=== PATIENT | female | born 1940 | race Caucasian/White ===

== ENCOUNTER 2016-07-19 06:11 | Inpatient (IN) | payer OTHER, BC ==
[2016-06-26 12:17] VITALS: BMI 42.0
--- NOTE | 2016-06-26 12:46 | PAT Medication Instructions ---
Service Date Jun 26, 2016. Current Home Medication List Acetaminophen (Tylenol), 1,000 MG PO PRN Albuterol (Proair Hfa), 2 PUFFS INH Q4 PRN for SOB/Wheezing Calcium/Vitamin D (Os-King 500 Plus D), 2 TAB PO NOON Cetirizine (Zyrtec), 10 MG PO QAM Citalopram (Citalopram Hydrobromide), 20 MG PO QAM Cyanocobalamin (Vitamin B12), 1,000 MG PO QAM Fluticasone Prop/Salmeterol (Advair Diskus 250/50 60 Dose), 1 PUFF INH BID Levothyroxine Sodium (Levothyroxine Sodium), 1 TAB PO QAM Mometasone Furoate (Nasal) (Mometasone Furoate), 2 SPRAYS ANDRES PRN Multivitamin (Multivitamin), 1 TAB PO QAM Omeprazole (Prilosec), 40 MG PO QAM Pravastatin (Pravachol ), 40 MG PO HS Ranitidine Hcl (Zantac), 300 MG PO HS Rivaroxaban (Xarelto), 20 MG PO HS Medication Instructions For Your Scheduled Surgery - Hold the following medications 3 days prior to surgery per Pulmonology instructions: Rivaroxaban (Xarelto), 20 MG PO HS - Hold the following medications the morning of surgery: Calcium/Vitamin D (Os-King 500 Plus D), 2 TAB PO NOON Cetirizine (Zyrtec), 10 MG PO QAM Cyanocobalamin (Vitamin B12), 1,000 MG PO QAM Multivitamin (Multivitamin), 1 TAB PO QAM - Take the following medications the morning of surgery with a sip of water OTHERWISE NOTHING TO EAT OR DRINK AFTER MIDNIGHT: Acetaminophen (Tylenol), 1,000 MG PO PRN (may take if needed up to 4 hours prior to surgery) Albuterol (Proair Hfa), 2 PUFFS INH Q4 PRN for SOB/Wheezing (use if needed; BRING TO HOSPITAL) Mometasone Furoate (Nasal) (Mometasone Furoate), 2 SPRAYS ANDRES PRN Citalopram (Citalopram Hydrobromide), 20 MG PO QAM Fluticasone Prop/Salmeterol (Advair Diskus 250/50 60 Dose), 1 PUFF INH BID Levothyroxine Sodium (Levothyroxine Sodium), 1 TAB PO QAM Omeprazole (Prilosec), 40 MG PO QAM - Take the following medications as scheduled the night before surgery: Acetaminophen (Tylenol), 1,000 MG PO PRN Albuterol (Proair Hfa), 2 PUFFS INH Q4 PRN for SOB/Wheezing Fluticasone Prop/Salmeterol (Advair Diskus 250/50 60 Dose), 1 PUFF INH BID Pravastatin (Pravachol ), 40 MG PO HS Ranitidine Hcl (Zantac), 300 MG PO HS If you have any questions please call us at [phone] or [phone] or [phone]
[2016-06-26 13:28] LABS: BASO % 0.3 %; BASO ABS # 0.02 K/uL (0-0.2); COMPLETE YES; EOS % 0.9 %; HEMATOCRIT 40.5 % (37-47); IG% 0.1 %; LYMPH % 22.3 %; LYMPH ABS # 1.77 K/uL (1.2-3.4); MEAN CELL VOLUME 89.6 fL (80-100); MEAN CORPUSCULAR HEMOGLOBIN 29.4 pg (25-34); MEAN CORPUSCULAR HGB CONC 32.8 g/dl (32-36); NEUT % 68.4 %; PLATELET COUNT 280 K/uL (130-400); RED BLOOD COUNT 4.52 M/uL (4.2-5.4); WHITE BLOOD COUNT 7.92 K/uL (4.8-10.8)
[2016-06-26 13:39] LABS: INR 1.1 (0.9-1.1); PROTHROMBIN TIME (PATIENT) 11.7 SECONDS (9.0-12.0)
[2016-06-26 13:41] LABS: URINE APPEARANCE CLEAR (CLEAR); URINE BILIRUBIN NEG (NEG); URINE COLOR YELLOW; URINE EPITHELIAL CELL AUTO >30 /lpf (0-5); URINE NITRITE NEG (NEG); URINE SPECIFIC GRAVITY 1.034 (1.000-1.030); UROBILINOGEN NEG (NEG)
[2016-06-26 13:42] LABS: MANUAL MICROSCOPIC REQUIRED? NO; REVIEW REQ? NO
[2016-06-26 14:15] LABS: BUN/CREATININE RATIO 23.9 (10-20); CALCIUM 8.9 mg/dl (8.5-10.1); CREATININE 0.71 mg/dl (0.60-1.20); POTASSIUM 4.1 mmol/L (3.5-5.1)
--- NOTE | 2016-07-18 15:14 | HISTORY & PHYSICAL EXAMINATION ---
DATE OF ADMISSION: 07/19/2016 CHIEF COMPLAINT: Primary osteoarthritis of the right knee. HISTORY OF PRESENT ILLNESS: Felicita is a very pleasant 76-year-old female who has been dealing with chronic right knee pain. X-rays and clinical examination have been diagnostic for primary osteoarthritis of the right knee. After failing years of conservative treatment including multiple injections, she has elected to proceed with a right total knee arthroplasty. PAST MEDICAL HISTORY: Significant for hypertension, asthma, pulmonary embolism, anxiety, shortness of breath, GERD, and obesity. PAST SURGICAL HISTORY: Significant for cataracts. ALLERGIES: INCLUDE SIMVASTATIN AND SULFA ANTIBIOTICS. MEDICATIONS: Include Tylenol 1000 mg as needed, ProAir 2 puffs every 4 hours as needed, Os-King 500 mg 2 tabs at noon, Zyrtec 10 mg daily, Celexa 20 mg daily, vitamin B12 1000 mg daily, Advair Diskus 1 puff twice a day, Synthroid 100 mcg daily, Flonase 2 sprays as needed, daily multivitamin, Prilosec 40 mg daily, Pravachol 40 mg at night, Zantac 300 mg at night and Xarelto 20 mg at night. SOCIAL HISTORY: She denies any tobacco, alcohol or IV drug use. She ambulates independently. REVIEW OF SYSTEMS: She complains of right knee pain. All other pertinent review of systems are negative. PHYSICAL EXAMINATION: GENERAL: She is awake, alert and oriented x3. She is in no apparent distress. She is very pleasant. HEAD, EYES, EARS, NOSE, AND THROAT: Pupils equal, round and reactive to light. Extraocular motion intact. Oral mucosa is pink and moist. HEART: Regular rate per radial pulse. LUNGS: Anum symmetrically bilaterally with no audible breath sounds. ABDOMEN: Soft, nontender, nondistended. MUSCULOSKELETAL: On physical examination of the right knee there is no swelling or effusion. She does have a valgus deformity of her right knee. She has no ligamentous instability. She has painless range of motion of her hip. She has good range of motion of her knee from 0 to 125 degrees. She has significant tenderness to palpation over the lateral joint line and over the distal lateral femoral condyle. IMAGING DATA: X-rays of the left knee do show advanced osteoarthritis mostly in the lateral compartment. There is joint space narrowing and osteophyte formation. IMPRESSION: Primary osteoarthritis of the right knee. PLAN: Will proceed with a Biomet Vanguard right total knee arthroplasty. Postoperatively, she will be placed in a soft dressing and discharged to general orthopedic floors. She will be put on Xarelto 10 mg daily for postoperative DVT prophylaxis. She will likely be in the hospital for 2 midnights for medical evaluation.
[2016-07-19] VITALS (9 sets, daily range): BP systolic 95–143; BP diastolic 64–87; PULSE 63–78; TEMP 36.3–36.9; O2SAT 95–100; Ht 149.9 cm; Wt 42.4 kg
[~2016-07-19] VITALS: Ht 149.9 cm; Wt 42.4 kg
[~2016-07-19 06:11] MED LIST: ACET-1256 PO; ACETAMINOPHEN 500 MG TAB PO SCH; ADVIN25/60 INH; ALBU1AER9 INH; CALC500C70 PO; CEFAZOLIN 2000 MG/60 ML D5W 60 ML IV SCH; CETI10TA84 PO; CITA40TA4 PO; CYAN100020 PO; FAMOTIDINE 20 MG TAB PO SCH; GABAPENTIN 300 MG CAP PO SCH; LACTATED RINGER'S 1000ML 500 ML IV SCH; LACTATED RINGER'S 1000ML IV SCH; LEVO100T7 PO; MOME6000 NAE; MULT-506 PO; OMEP40CA PO; PRAV20TA PO; RANI300T2 PO; RIVA1TAB4 PO; ROPIVACAINE 5MG/ML 30 ML 150 MG, BUPIVACAINE/EPINEPHR 0.5% MPF 30 ML, KETOROLAC TROMETH... INFIL SCH; TRANEXAMIC ACID INJ 1,000 MG in SODIUM CHLORIDE 0.9% 100ML 100 ML IV SCH
[2016-07-19] MEDS: TRANEXAMIC ACID INJ 1,000 MG in SODIUM CHLORIDE 0.9% 100ML 100 ML IV SCH ×2 (06:30→09:19)
[2016-07-19] MEDS ORDERED: BUPIVACAINE 0.5 % 5 MG/1 ML PF 10ML VIAL ONE (06:30)
--- NOTE | 2016-07-19 06:43 | History & Physical Bridge Note ---
H&P Re-Evaluation Bridge Note: I have examined the patient, reviewed the History & Physical and in the interval since the performance of the History & Physical I have noted the following changes of clinical significance: No changes noted
[2016-07-19] MEDS ORDERED: lovenox (06:48)
[2016-07-19] MEDS ORDERED: MIDAZOLAM HCL 1 MG/ML 2ML VIAL ONE (08:32)
[2016-07-19] MEDS ORDERED: FENTANYL CITRATE INJ 50 MCG/1 ML 2 ML VIAL ONE (08:32)
[2016-07-19] MEDS ORDERED: EpHEDrine SULFATE INJ 50 MG/ML AMP IV PRN (08:45)
[2016-07-19] MEDS ORDERED: ONDANSETRON INJ 2 MG/ML 2 ML VIAL IV PRN ×2 (08:45→11:15)
[2016-07-19] MEDS ORDERED: ATROPINE SULFATE 0.1 MG/ML 5ML SYR IV PRN (08:45)
[2016-07-19] MEDS ORDERED: FENTANYL CITRATE INJ 50 MCG/1 ML 2 ML VIAL IV PRN (08:45)
[2016-07-19] MEDS ORDERED: BACITRACIN 50000 UNIT VIAL ONE (09:20)
[2016-07-19] MEDS ORDERED: ORTHO JOINT ANESTHETIC ONE (09:20)
[2016-07-19] MEDS ORDERED: PHENYLEPHRINE 100MCG/ML 5ML SYR ONE (10:14)
[2016-07-19] MEDS ORDERED: PROPOFOL IV EMULSION 10 MG/ML 20 ML VIAL IV ONE (10:24)
[2016-07-19] MEDS ORDERED: EpHEDrine SULFATE 50MG/5ML SYR ONE (10:28)
--- NOTE | 2016-07-19 11:08 | [facility] Post Operative Brief Note ---
Immediate Operative Summary Operative Date July 19, 2016. Pre-Operative Diagnosis Right Knee Degenerative Joint Disease Post-Operative Diagnosis Right Knee Degenerative Joint Disease Procedure(s) Performed Right Total Knee Arthroplasty Surgeon Dr. Patel Sprinkling System Installer Surgeon(s) Norberto Arora Estimated Blood Loss 5 ml Findings as above Specimens Permanent Specimens A: Right Knee Bone and Tissue Complication(s) None Disposition Recovery Room / PACU
[2016-07-19] MEDS ORDERED: SOD PHOSPHATE/SOD BIPHOSPHATE ENEMA 132 ML BTL PR PRN (11:15)
[2016-07-19] MEDS ORDERED: MoRPHine SULFATE 2 MG/ML CARP IV PRN (11:15)
[2016-07-19] MEDS ORDERED: BISACODYL 10 MG SUPP PR PRN (11:15)
[2016-07-19] MEDS ORDERED: METOCLOPRAMIDE HCL INJ 5 MG/ML 2 ML VIAL IV PRN (11:15)
[2016-07-19] MEDS ORDERED: ALBUTEROL HFA 8 GM INHALER INH PRN (11:15)
[2016-07-19] MEDS ORDERED: MAGNESIUM HYDROXIDE SUSP 30 ML UDC PO PRN (11:15)
[2016-07-19] MEDS ORDERED: SILVER SULFADIAZINE 1% CR 50 GM JAR EXT PRN (11:15)
--- NOTE | 2016-07-19 12:16 | DIAGNOSTIC IMAGING REPORT ---
RIGHT KNEE 1 OR 2 VIEWS ROUTINE CLINICAL HISTORY: AP/LATERAL IN PACU RIGHT KNEE Right joint replacement COMPARISON: None. DISCUSSION: Evidence for a total right knee replacement. Good contact between prosthetic and underlying bone. Surgical drains are in position. Expected soft tissue postoperative change. IMPRESSION: Anatomic alignment status post total right knee replacement. Electronically signed by: Efren Mtaute M.D. 07/19/2016 12:15 PM Dictated Date/Time: 07/19/2016 12:15 PM
--- NOTE | 2016-07-19 12:51 | Anesthesiology Progress Note ---
Anesthesia Post Op Note Date & Time July 19, 2016 at 12:51 Vital Signs Pain Intensity: 0 Vital Signs Past 12 Hours Date Time Temp Pulse Resp B/P Pulse Ox O2 Delivery O2 Flow Rate FiO2 07/19/16 12:15 101/54 07/19/16 12:12 65 14 07/19/16 12:12 65 14 96 07/19/16 12:10 110/50 07/19/16 12:07 67 13 07/19/16 12:07 67 13 96 07/19/16 12:05 107/57 07/19/16 12:04 36.9 07/19/16 12:02 67 15 95 07/19/16 12:02 66 15 07/19/16 12:01 65 19 96 07/19/16 12:01 66 19 07/19/16 12:00 116/51 07/19/16 11:56 75 19 98 07/19/16 11:56 75 19 07/19/16 11:55 99/51 07/19/16 11:51 66 16 07/19/16 11:51 65 16 97 07/19/16 11:50 70 19 120/53 97 07/19/16 11:50 68 19 07/19/16 11:46 114/56 07/19/16 11:45 75 17 07/19/16 11:45 76 17 99 07/19/16 11:40 37.1 74 16 140/64 97 Mask 10 07/19/16 11:40 74 18 07/19/16 11:40 72 18 140/64 96 07/19/16 06:53 36.9 78 20 143/87 96 Room Air Notes Mental Status: alert / awake / arousable, participated in evaluation Pt Amnestic to Procedure: Yes Nausea / Vomiting: adequately controlled Pain: adequately controlled Airway Patency, RR, SpO2: stable & adequate BP & HR: stable & adequate Hydration State: stable & adequate Neuraxial Anesthesia: was administered, sensory block is resolving Anesthetic Complications: no major complications apparent
[2016-07-19] MEDS ORDERED: FLUTICASONE PROPIONATE NA SPR 16 GM BTL PRN (13:00)
[2016-07-19] MEDS: D5W AND 1/2NSS + 20MEQ KCL 1,000 ML IV SCH ×2 (13:36→22:54)
[2016-07-19] MEDS: CALCIUM 600MG + VIT D 400 IU TAB PO SCH (13:37)
[2016-07-19] MEDS: ACETAMINOPHEN 500 MG TAB PO SCH ×2 (13:37→21:49)
[2016-07-19] MEDS: KETOROLAC TROMETHAMINE 15 MG/ML VIAL IV. SCH ×3 (13:38→23:19)
--- NOTE | 2016-07-19 14:47 | OPERATIVE REPORT ---
DATE OF OPERATION: 07/19/2016 PREOPERATIVE DIAGNOSIS: Primary osteoarthritis of the right knee. POSTOPERATIVE DIAGNOSIS: Same. PROCEDURE: Right total knee arthroplasty. SURGEON: Dr. Lopez Patel. MOLDED GOODS EMBOSSING PRESS OPERATOR: Trav Orellana PA-C, whose assistance was necessary for positioning of the leg and helping with retraction. ANESTHESIA: Spinal. COMPLICATIONS: None. CONDITION: Stable to PACU. IMPLANTS USED: I used a Biomet Vanguard right total knee arthroplasty with a size 60 femur, size 63 tibia, size 28 patella and a 10 posterior stabilized poly. All complements were cemented with Palacos-G cement. INDICATIONS: Felicita is a pleasant 76-year-old female who presented to my office with complaints of chronic right knee pain. X-rays and clinical examination were diagnostic for primary osteoarthritis of the right knee. After failing conservative treatment, she elected to undergo a right total knee arthroplasty. DESCRIPTION OF PROCEDURE: On 07/19/2016, she arrived at [facility] for the above procedure. She was seen in the preoperative holding area and the operative extremity was identified and signed. She was given a preoperative antibiotic and a spinal anesthetic and a right adductor nerve block. She was taken back to the operating room, laid on the table in supine position and given basic sedation. The right knee was then prepped and draped in sterile fashion. Time-out was done and the patient and operative extremity was properly identified. A midline incision was made directly over the patella. Dissection was taken down to the extensor mechanism and a medial parapatellar approach was used. The fat pad was excised, medial retinaculum was released and the knee was flexed. A drill was sent down the center of the femoral canal. An intramedullary deniz was then placed and off that deniz, there was a distal femoral resection guide set at 6 degrees of valgus. 12 mm was resected off the distal femur. A posterior referencing guide was then used and the femur measured to be a size 60. Two drill holes were placed in 3 degrees of external rotation. A 4-in-1 cutting block was then impacted into place. Anterior, posterior and chamfer cuts were then made. A box cutting guide was then placed and the box was resected for the posterior stabilizing component. The proximal tibia was exposed. A drill was sent down the center of the tibial canal followed by an intramedullary deniz. Off that deniz, a proximal tibial resection guide was placed and 2 mm was resected off the low lateral side. The tibia was then removed. The tibia was then measured to be a size 63 and was placed in appropriate rotation, drilled and then punched. The posterior aspect of the knee was opened up and any meniscal remnants were removed. The ACL and PCL were completely removed. Trial complements were placed. The knee was brought through a full range of motion and felt to be stable. The patella was everted and 8 mm was resected off the posterior aspect of the patella. The patella button measured to be a size 28 and 3 drill holes were placed. A trial was used and there was a good fit. All trial components were then removed. The knee was irrigated with 3 liters of normal saline solution with bacitracin. All surrounding soft tissues were injected with 100 mL orthopedic pain control cocktail. The femoral, tibial, and patellar components were cemented with Palacos-G cement. Once cement had hardened, several polyethylene trials were used and a size 10 seemed to be the best fit. The final implant was snapped into place and anterior bar was locked. The knee was once again irrigated and 2 drains were placed. The extensor mechanism was closed with #2 FiberWire sutures at the superior medial aspect of the patella and #1 Vicryl suture at the proximal and distal ends. The knee was flexed and the repair was strong. The skin was then closed with 2-0 Vicryl and 3-0 V-Loc suture and zainab. She was placed in a soft compressive dressing and taken to the postanesthesia care unit in stable condition. She tolerated the procedure well. I attest to the content of the Intraoperative Record and any orders documented therein. Any exceptio ns are noted below.
[2016-07-19] MEDS ORDERED: PNEUMOCOCCAL POLYSACCHARIDES 25 MCG/0.5 ML VIAL/SYR IM. ONE (16:00)
[2016-07-19] MEDS ORDERED: PNEUMOCOCCAL ADMINISTRATION CHARGE ONE (16:00)
[2016-07-19] MEDS: CEFAZOLIN IV 2,000 MG in DEXTROSE 5% 50ML 50 ML IV SCH (17:38)
[2016-07-19] MEDS: FLUTICASONE/SALMETEROL 250/50 (ADVAIR) 14 PUFF/1 INHALER INH SCH (21:45)
[2016-07-19] MEDS: PRAVASTATIN SOD 40 MG TAB PO SCH (21:48)
[2016-07-19] MEDS: DOCUSATE SODIUM 100 MG CAP PO SCH (21:48)
[2016-07-19] MEDS: RANITIDINE HCL 150 MG TAB PO SCH (21:48)
[2016-07-19] MEDS: SENNA 8.6 MG TAB PO SCH (21:48)
[2016-07-20] VITALS (9 sets, daily range): BP systolic 118–149; BP diastolic 74–97; PULSE 66–74; TEMP 35.6–36.8; O2SAT 92–100
[2016-07-20] MEDS: CEFAZOLIN IV 2,000 MG in DEXTROSE 5% 50ML 50 ML IV SCH (01:59)
[2016-07-20] MEDS: KETOROLAC TROMETHAMINE 15 MG/ML VIAL IV. SCH ×4 (05:22→23:31)
[2016-07-20] MEDS: RIVAROXABAN 10 MG TAB PO SCH (05:23)
[2016-07-20] MEDS: ACETAMINOPHEN 500 MG TAB PO SCH ×3 (05:23→21:47)
[2016-07-20] MEDS: LEVOTHYROXINE 100 MCG TAB PO SCH (05:23)
[2016-07-20 06:28] LABS: HEMATOCRIT 38.7 % (37-47); MEAN CELL VOLUME 91.3 fL (80-100); MEAN CORPUSCULAR HEMOGLOBIN 28.5 pg (25-34); MEAN CORPUSCULAR HGB CONC 31.3 g/dl (32-36); MEAN PLATELET VOLUME 10.2 fL (7.4-10.4); PLATELET COUNT 216 K/uL (130-400); RED BLOOD COUNT 4.24 M/uL (4.2-5.4); WHITE BLOOD COUNT 10.09 K/uL (4.8-10.8)
[2016-07-20 07:02] LABS: CALCIUM 8.9 mg/dl (8.5-10.1); CREATININE 0.67 mg/dl (0.60-1.20); POTASSIUM 4.1 mmol/L (3.5-5.1)
--- NOTE | 2016-07-20 08:59 | PROGRESS NOTE ---
DATE: 07/20/2016 CHIEF COMPLAINT: Status post right total knee arthroplasty postop day #1. PROGRESS: Felicita was seen and examined at bedside today. Overall, she is doing fairly well. She really does not have much pain in the knee. She was up and ambulating to the bathroom early this morning. She is having a little bleeding from underneath the dressing. Otherwise, no complaints. PHYSICAL EXAMINATION: RIGHT KNEE: The dressing has been overwrapped but otherwise looks good. The drain is still to suction. She has active dorsiflexion and plantarflexion of her right ankle. Sensation is intact. LABS: Today show an H\T\H of 12.1 and 38.7. Her glucose is 147. Her vital signs are stable on room air and she is voiding on her own. X-rays postoperatively of the knee showed the prosthesis to be near anatomical alignment without any evidence of fractures, dislocation or loosening. IMPRESSION: Status post right total knee arthroplasty postop day #1. PLAN: At this point, she is doing as well as expected. The nursing staff will change the dressing and pull the drain tomorrow. Will continue to do physical therapy today. She plans to go home tomorrow as long as her pain is controlled. CHRISTOS
[2016-07-20] MEDS: FLUTICASONE/SALMETEROL 250/50 (ADVAIR) 14 PUFF/1 INHALER INH SCH ×2 (09:12→21:46)
[2016-07-20] MEDS: CETIRIZINE HCL 10 MG TAB PO SCH (09:13)
[2016-07-20] MEDS: CITALOPRAM 20 MG TAB PO SCH (09:13)
[2016-07-20] MEDS: MULTIVITAMIN TAB PO SCH (09:13)
[2016-07-20] MEDS: PANTOprazole SOD 40 MG TAB PO SCH (09:14)
[2016-07-20] MEDS: DOCUSATE SODIUM 100 MG CAP PO SCH ×2 (09:14→21:46)
[2016-07-20] MEDS: CYANOCOBALAMIN 500 MCG TAB (VIT B-12) PO SCH (09:15)
[2016-07-20] MEDS: D5W AND 1/2NSS + 20MEQ KCL 1,000 ML IV SCH (09:15)
[2016-07-20] MEDS: CALCIUM 600MG + VIT D 400 IU TAB PO SCH (12:09)
[2016-07-20] MEDS: OXYCODONE HCL IR 5 MG TAB (IMMEDIATE RELEASE) PO PRN (19:18)
[2016-07-20] MEDS: SENNA 8.6 MG TAB PO SCH (21:46)
[2016-07-20] MEDS: PRAVASTATIN SOD 40 MG TAB PO SCH (21:47)
[2016-07-20] MEDS: RANITIDINE HCL 150 MG TAB PO SCH (21:47)
[2016-07-21] MEDS: ACETAMINOPHEN 500 MG TAB PO SCH (05:28)
[2016-07-21] MEDS: RIVAROXABAN 10 MG TAB PO SCH (05:29)
[2016-07-21] MEDS: LEVOTHYROXINE 100 MCG TAB PO SCH (05:29)
[2016-07-21] MEDS: KETOROLAC TROMETHAMINE 15 MG/ML VIAL IV. SCH (05:29)
[2016-07-21 06:35] VITALS: BP 119/78; PULSE 73; TEMP 36.4; O2SAT 94
[2016-07-21] MEDS: FLUTICASONE/SALMETEROL 250/50 (ADVAIR) 14 PUFF/1 INHALER INH SCH (07:26)
[2016-07-21] MEDS: DOCUSATE SODIUM 100 MG CAP PO SCH (07:27)
[2016-07-21] MEDS: CITALOPRAM 20 MG TAB PO SCH (07:27)
[2016-07-21] MEDS: CETIRIZINE HCL 10 MG TAB PO SCH (07:28)
[2016-07-21] MEDS: CYANOCOBALAMIN 500 MCG TAB (VIT B-12) PO SCH (07:28)
[2016-07-21] MEDS: MULTIVITAMIN TAB PO SCH (07:28)
[2016-07-21] MEDS: PANTOprazole SOD 40 MG TAB PO SCH (07:28)
[2016-07-21] MEDS: OXYCODONE HCL IR 5 MG TAB (IMMEDIATE RELEASE) PO PRN (07:33)
[2016-07-21] MEDS ORDERED: RXC5 PO (09:24)
[2016-07-21 09:25] VITALS: BP 121/79; PULSE 72; O2SAT 97
--- NOTE | 2016-07-21 09:28 | Discharge Instructions ---
Discharge Instructions Date of Service July 21, 2016. Admission Reason for Admission: Right Knee Osteoarthritis Discharge Discharge Diagnosis / Problem: Right Total Knee Discharge Goals Goal(s): Decrease discomfort, Improve function Activity Recommendations Activity Limitations: as noted below . Instructions / Follow-Up Instructions / Follow-Up Activity and Therapy Recommendations: * If you are using [facility] then Physical Therapy will be provided until they feel you are ready to start Outpatient Physical Therapy. If you are not using a Home Health agency then Outpatient Physical Therapy should start about 3-5 days from your day of surgery. Therapy will last about 6-10 weeks * It is important not to put a pillow under your knee when you are relaxing or sleeping. It is just as important to make sure you are getting your knee perfectly straight as it is to regain your knee bend. * You were shown a series of exercises in the hospital. Do these exercises three times each day including the exercises you were shown in physical therapy. * Get up and walk several times each day. For the first four weeks, try not to stand or walk for more than one hour at a time. If you do stand or walk for more than one hour, you will not hurt anything, but your leg will likely swell. * As you feel comfortable, you may change from the walker or crutches to a cane and then to independent walking. Medications: * Narcotic You will likely be sent home from the hospital with a prescription for the narcotic pain medication that worked best throughout your stay. * Take Xerelto 10mg daily for 2 weeks then resume your 20mg daily dosage * Other medications may be prescribed for specific circumstances. If you have any questions, please call the office at . * Resume previous home medications unless otherwise instructed TEDs/Elastic Stockings: The white elastic stockings help limit swelling and prevent blood clots from forming in your legs.~ The more you wear them, the more they work. Wear them for six weeks. Dressing Care: You may leave the zainab uncovered or cover them if they are draining a little bit. No further dressing care is required Showering: You may shower 5 days from the day of surgery. Leave the zainab intact and let the soapy shower water run over it. Do not scrub or soak the dressing or the incision. Things To Watch For: * Drainage from the incision site that occurs more than one week after your surgery. * Increased redness at the incision site. * Fever above 102 degrees Fahrenheit. * Unusual chest pain or shortness of breath. * Call [facility] at with any of the above problems Follow-Up Visit: Follow-up with Dr. Patel 2-3 weeks after your day of surgery. An appointment was probably scheduled when you signed-up for surgery in the office. If you have any questions call Office Instructions: More detailed instructions as well as Frequently Asked Questions were provided in a folder by our office when you signed-up for surgery. Please review these instructions when you get home. If you have any further questions or concerns, please feel free to call the office at [phone] Current Hospital Diet Patient's current hospital diet: Regular Diet Discharge Diet Recommended Diet: Regular Diet Procedures Procedures Performed: Right Total Knee Arthroplasty Pending Studies Studies pending at discharge: no Medical Emergencies . Who to Call and When: Medical Emergencies: If at any time you feel your situation is an emergency, please call [phone] immediately. . Non-Emergent Contact Non-Emergency issues call your: Surgeon Call Non-Emergent contact if: wound has increased drainage, wound has increased redness . "Provider Documentation" section prepared by Lopez Patel. . VTE Core Measure Inpt VTE Proph given/why not?: Other Anticoagulation (Xerelto 10mg dauily for 2 weeks then resume your 20mg daily dose)
[2016-07-21 10:13] VITALS: BP 119/78; PULSE 73; TEMP 36.4; O2SAT 94
--- NOTE | 2016-07-21 10:19 | PROGRESS NOTE ---
DATE: 07/21/2016 DATE: 07/21/2016. CHIEF COMPLAINT: Status post right total knee arthroplasty postop day #2. PROGRESS: Felicita was seen and examined at bedside today. Overall, she is doing fairly well. She was having a lot of drainage yesterday from one of the drain hole sites, not from the incision itself. The dressing has been changed. It is is still draining a little bit but seems to be slowing down. Her pain is controlled. She has no other complaints. PHYSICAL EXAMINATION: The incision looks good. There is no drainage from the incision. There is some drainage from the medial drainage site. It does seem to be slowing down. Her leg lengths are equal. She is neurovascularly intact. IMPRESSION: Status post right total knee arthroplasty postop day #2. PLAN: She is doing fairly well. She has been working well with physical therapy. She has been ambulating. She had one area where she was a little lightheaded but her blood pressure is fine. She seems to be doing okay. Her pain is controlled. She is ready to be discharged to home. She can be discharged to home later this morning on oral pain medications and Xarelto.
--- NOTE | 2016-07-21 10:29 | DISCHARGE SUMMARY ---
DATE OF DISCHARGE: 07/21/2016. DISCHARGE DIAGNOSIS: Primary osteoarthritis of the right knee. PROCEDURE: Right total knee arthroplasty on 07/19/[address] Lopez Patel. DISCHARGE INSTRUCTIONS: 1. Oxycodone 5-10 mg every 4 hours as needed for pain. 2. Tylenol 1000 mg as needed. 3. Albuterol 2 puffs every 4 hours as needed. 4. Os-King 500 Plus D 2 tabs at noon. 5. Zyrtec 10 mg daily. 6. Celexa 20 mg daily. 7. Vitamin B12 1000 mg daily. 8. Advair Diskus 1 puff twice a day. 9. Synthroid 100 mcg daily. 10. Nasal sprays daily. 11. Prilosec 40 mg daily. 12. Pravachol 40 mg at night. 13. Zantac 300 mg at night. 14. Xarelto 10 mg daily for 2 weeks, then may resume the 20 mg daily dose. 15. Start physical therapy this week. 16. Follow up with Dr. Patel in 2 to 3 weeks. HOSPITAL COURSE: Felicita is a pleasant 76-year-old female who presented to my office with chronic right knee pain. X-rays and clinical examination were diagnostic for primary osteoarthritis of the right knee. After failing conservative treatment, she elected to undergo a right total knee arthroplasty. On 07/19/2016 she arrived at [facility] and underwent a right knee replacement without complications. She had a spinal anesthetic and a right adductor nerve block. Postoperatively, she was discharged to general orthopedic floor. She was started on Xarelto 10 mg daily. Her hospital course was uneventful. On postop day #1, her H\T\H was stable at 12.1 and 38.5. She was able to ambulate well with physical therapy. She was having some drainage from one of the drain hole sites, not from the incision itself. The dressing was changed later in the day and the drain was pulled. On postop day #2 she continued to do well. She was ambulating well with physical therapy and her pain was well controlled. She was subsequently discharged to home with the above instructions and oral pain medications.
== END 2016-07-21 11:10 | disposition home health service (06) | DRG 470 ==
LOC: ENRESERVTM → ENRESERVDT → C.ACU 06:11 → C.3E 06:56
PROVIDERS: ADMIT Orthopaedic Surgery; ATTEND Orthopaedic Surgery
PROC: 0SRC0J9 Replacement of Right Knee Joint with Synthetic Substitute, Cemented, Open Approach (ICD-10-PCS; principal; 2016-07-19 09:30)
DX: M17.9 Osteoarthritis of knee, unspecified (principal); I10 Essential (primary) hypertension; J45.909 Unspecified asthma, uncomplicated; F41.9 Anxiety disorder, unspecified; K21.9 Gastro-esophageal reflux disease without esophagitis; Z86.711 Personal history of pulmonary embolism; Z79.899 Other long term (current) drug therapy

== ENCOUNTER → 2016-10-10 | Outpatient (CLI) | payer OTHER, BC ==
[~2016-10-10] MED LIST changes: -ACETAMINOPHEN 500 MG TAB PO SCH; -CEFAZOLIN 2000 MG/60 ML D5W 60 ML IV SCH; -FAMOTIDINE 20 MG TAB PO SCH; -GABAPENTIN 300 MG CAP PO SCH; -LACTATED RINGER'S 1000ML 500 ML IV SCH; -LACTATED RINGER'S 1000ML IV SCH; -RIVA1TAB4 PO; -ROPIVACAINE 5MG/ML 30 ML 150 MG, BUPIVACAINE/EPINEPHR 0.5% MPF 30 ML, KETOROLAC TROMETH... INFIL SCH; +RXC5 PO; -TRANEXAMIC ACID INJ 1,000 MG in SODIUM CHLORIDE 0.9% 100ML 100 ML IV SCH; +lovenox
[2016-10-10 14:30] LABS: BASO % 0.6 %; BASO ABS # 0.04 K/uL (0-0.2); COMPLETE YES; EOS % 3.8 %; HEMATOCRIT 41.3 % (37-47); IG% 0.3 %; LYMPH % 25.1 %; LYMPH ABS # 1.77 K/uL (1.2-3.4); MEAN CELL VOLUME 85.9 fL (80-100); MEAN CORPUSCULAR HEMOGLOBIN 26.6 pg (25-34); MEAN PLATELET VOLUME 10.3 fL (7.4-10.4); MONO % 8.1 %; NEUT % 62.1 %; PLATELET COUNT 328 K/uL (130-400); RED BLOOD COUNT 4.81 M/uL (4.2-5.4); WHITE BLOOD COUNT 7.05 K/uL (4.8-10.8)
[2016-10-10 15:05] LABS: CHOLESTEROL/HDL RATIO 2.1
--- NOTE | 2016-10-16 11:56 | CODING QUERY MEDICAL NECESSITY ---
SUPPORTING DIAGNOSIS NEEDED Dr. Scales, A supporting diagnosis is required for the test/procedure performed on this patient in order for us to be reimbursed by the patient's insurance. Please provide a supporting diagnosis for the following test/procedure listed below next to the test name along with your signature. *If there is no additional diagnosis for this patient that would support the following test/procedure please document that below next to the test/procedure. Test(s)/Procedure(s) that require a supporting diagnosis: * ([id number]) B12 VITAMIN LEVEL DIAGNOSIS: DATE OF SERVICE: 10/10/16 Provider Signature: Date: Thank you Maco Posey [facility] Information Management Once completed, please kindly fax back to [phone] For questions please call [phone]
== END | disposition home or self-care (01) ==
LOC: C.LABMFLN 09:46
PROVIDERS: ATTEND Family Medicine
DX: R53.83 Other fatigue (principal); E78.5 Hyperlipidemia, unspecified

== ENCOUNTER → 2017-07-25 | Outpatient (CLI) | payer OTHER, BC ==
[2017-07-25 18:08] LABS: HEMATOCRIT 30.6 % (37-47); HEMOGLOBIN 8.6 g/dL (12.0-16.0); MEAN CELL VOLUME 70.2 fL (80-100); MEAN CORPUSCULAR HEMOGLOBIN 19.7 pg (25-34); MEAN CORPUSCULAR HGB CONC 28.1 g/dl (32-36); MEAN PLATELET VOLUME 9.7 fL (7.4-10.4); PLATELET COUNT 375 K/uL (130-400); WHITE BLOOD COUNT 7.88 K/uL (4.8-10.8)
[2017-07-25 18:14] LABS: ALBUMIN 3.4 gm/dl (3.4-5.0); ALT/SGPT 15 U/L (12-78); AST/SGOT 17 U/L (15-37); BLOOD UREA NITROGEN 15 mg/dl (7-18); CALCIUM 8.4 mg/dl (8.5-10.1); CARBON DIOXIDE 27 mmol/L (21-32); CREATININE 0.81 mg/dl (0.60-1.20); GLUCOSE 84 mg/dl (70-99); POTASSIUM 4.1 mmol/L (3.5-5.1); SODIUM 142 mmol/L (136-145)
[2017-07-25 18:21] LABS: BASO % 0.5 %; BASO ABS # 0.04 K/uL (0-0.2); EOS % 1.4 %; EOS ABS # 0.11 K/uL (0-0.5); IG# 0.03 K/uL (0.00-0.02); LYMPH % 26.5 %; LYMPH ABS # 2.09 K/uL (1.2-3.4); MONO % 7.2 %; MONO ABS # 0.57 K/uL (0.11-0.59); NEUT ABS # 5.04 K/uL (1.4-6.5)
[2017-07-25 18:24] LABS: ALKALINE PHOSPHATASE 69 U/L (45-117); TOTAL PROTEIN 6.7 gm/dl (6.4-8.2)
== END | disposition home or self-care (01) ==
LOC: C.LABMFLN 14:29
PROVIDERS: ATTEND Family Medicine
DX: J45.901 Unspecified asthma with (acute) exacerbation (principal); R53.83 Other fatigue; E03.9 Hypothyroidism, unspecified

== ENCOUNTER 2019-01-22 05:34 | Inpatient (IN) ==
--- NOTE | 2018-12-20 19:38 | PAT Medication Instructions ---
Medication Instructions Date of Service December 20, 2018 Home Medications Medication Instructions Recorded albuterol sulfate HFA 90 2 puffs INHALATION Q4H PRN #18 gm 11/09/18 mcg/actuation aerosol inhaler cyanocobalamin (vit B-12) ER 1,000 1,000 mcg PO DAILY #90 tab 11/09/18 mcg tablet,extended release fluticasone 250 mcg-salmeterol 50 1 puffs INHALATION Q12H #60 ea 11/09/18 mcg/dose blistr powdr for inhalation multivitamin tablet 1 tab PO DAILY #90 tab 11/09/18 Continue as directed albuterol sulfate HFA 90 mcg/actuation aerosol inhaler 2 puffs INHALATION Q4H PRN cyanocobalamin (vit B-12) ER 1,000 mcg tablet,extended release 1,000 mcg PO DAILY fluticasone 250 mcg-salmeterol 50 mcg/dose blistr powdr for inhalation 1 puffs INHALATION Q12H multivitamin tablet 1 tab PO DAILY citalopram 20 mg tablet 20 mg PO QAM melatonin 3 mg tablet 3 mg PO HS PRN rivaroxaban 20 mg tablet 20 mg PO HS calcium carbonate-vitamin D3 1 tab PO DAILY cetirizine 10 mg PO QAM famotidine 20 mg PO BID PRN levothyroxine 88 mcg PO QAM polysaccharide iron complex [Ferrex 150] 150 mg PO BID rosuvastatin 10 mg PO HS ASK your prescriber and surgeon rivaroxaban 20 mg tablet 20 mg PO HS (in order for spinal anesthesia, Xarelto/rivaroxaban needs to be held 3 days/72 hours prior to surgery. Please check if this is okay with doctor that prescribes this to you) DO NOT take the morning of surgery cyanocobalamin (vit B-12) ER 1,000 mcg tablet,extended release 1,000 mcg PO DAILY multivitamin tablet 1 tab PO DAILY calcium carbonate-vitamin D3 1 tab PO DAILY cetirizine 10 mg PO QAM famotidine 20 mg PO BID PRN polysaccharide iron complex [Ferrex 150] 150 mg PO BID Take morning of surgery With a small sip of water, OTHERWISE NOTHING TO EAT OR DRINK AFTER MIDNIGHT: albuterol sulfate HFA 90 mcg/actuation aerosol inhaler 2 puffs INHALATION Q4H PRN (use if needed; please bring with you to hospital day of surgery if possible) fluticasone 250 mcg-salmeterol 50 mcg/dose blistr powdr for inhalation 1 puffs INHALATION Q12H citalopram 20 mg tablet 20 mg PO QAM levothyroxine 88 mcg PO QAM Take evening before surgery albuterol sulfate HFA 90 mcg/actuation aerosol inhaler 2 puffs INHALATION Q4H PRN (if needed) fluticasone 250 mcg-salmeterol 50 mcg/dose blistr powdr for inhalation 1 puffs INHALATION Q12H melatonin 3 mg tablet 3 mg PO HS PRN (if needed) famotidine 20 mg PO BID PRN (if needed) polysaccharide iron complex [Ferrex 150] 150 mg PO BID rosuvastatin 10 mg PO HS Other Notes If you have any questions please call us at [phone] or [phone] or [phone] or [phone]
--- NOTE | 2018-12-21 13:09 | Anesthesiology Consultation ---
Date of Service December 21, 2018 Assessment & Plan (1) Encounter for pre-operative examination: - PCP: 11/30/18: bronchitis treated with antibiotics. [Symptoms resolved as of PAT visit 12/21/18]. - Xarelto instructions: patient made aware that in order for spinal anesthesia, Xarelto needs to be held 72 hours/3 days prior to surgery. Patient voiced understanding/will check if okay with prescriber. Chart Review Chart Review: Pending: Refer to Additional Notes / Consult section (pending preop testing (labs, EKG, CXR)) and Patient seen in Pre Admission Testing Teaching & Discussion Pre-Anesthesia Teaching/Discussion Notes: Instructed NPO after midnight before surgery,except medications with 15 cc of water. Medication instructions provided according to the PAT guidelines. History Surgery Operation Date: 01/22/19 08:50 Proposed Procedures p Left Total Knee Arthroplasty - Lopez Patel, Height/Weight Height: 4 ft 11 in Weight: 94.7 kg Allergies Allergy/AdvReac Type Severity Reaction Status Date / Time simvastatin Allergy Mild RASH Verified 12/14/18 13:34 Sulfa (Sulfonamide Allergy Mild RASH Verified 12/14/18 13:34 Antibiotics) doxycycline Allergy Unknown SOB, Verified 12/21/18 13:13 trouble swallowing Medications Home Medications Medication Instructions Recorded Confirmed Last Taken albuterol sulfate HFA 90 2 puffs INHALATION Q4H PRN #18 gm 11/09/18 12/14/18 Unknown mcg/actuation aerosol inhaler cyanocobalamin (vit B-12) ER 1,000 1,000 mcg PO DAILY #90 tab 11/09/18 12/14/18 Unknown mcg tablet,extended release fluticasone 250 mcg-salmeterol 50 1 puffs INHALATION Q12H #60 ea 11/09/18 12/14/18 Unknown mcg/dose blistr powdr for inhalation multivitamin tablet 1 tab PO DAILY #90 tab 11/09/18 12/14/18 Unknown citalopram 20 mg tablet 20 mg PO QAM tab 11/18/18 12/14/18 Unknown melatonin 3 mg tablet 3 mg PO HS PRN tab 11/18/18 12/14/18 Unknown rivaroxaban 20 mg tablet 20 mg PO HS tab 11/30/18 12/14/18 Unknown calcium carbonate-vitamin D3 1 tab PO DAILY 12/14/18 12/14/18 Unknown cetirizine 10 mg PO QAM 12/14/18 12/14/18 Unknown famotidine 20 mg PO BID PRN 12/14/18 12/14/18 Unknown levothyroxine 88 mcg PO QAM 12/14/18 12/14/18 Unknown polysaccharide iron complex 150 mg PO BID 12/14/18 12/14/18 Unknown [Ferrex 150] rosuvastatin 10 mg PO HS 12/14/18 12/14/18 Unknown Past Medical History Medical History H/O deep venous thrombosis LLE DVT: 3 years ago= on Xarelto Recurrent pulmonary embolism 3 years ago + recurrent ("unprovoked")- on Xarelto Obesity Iron deficiency anemia hx of iron infusions Hypothyroidism Hyperlipidemia Asthma stable Acid reflux disease controlled Anxiety and depression History of gout Morbid obesity Osteoarthritis Exercise / Class Metabolic Activity III < 4 Walking/Shop/Light housework (uses cane PRN) Past Family History Family History Unknown No problems noted. Father Colorectal cancer Diabetes Family hx of colon cancer Brother Prostate cancer Sister Lung cancer Family/Other Myocardial infarction Son Diabetes Past Surgical History Surgical History History of appendectomy History of cataract surgery RT History of colonoscopy History of dilation and curettage History of esophagogastroduodenoscopy (EGD) History of tonsillectomy and adenoidectomy History of tooth extraction History of total knee replacement Right TKA: 07/19/16: SAB x 1 at L3-L4 + PNB at [facility] History of tubal ligation Past Anesthesia History No Hx of Anesthesia Complications and No Family Hx of Anesthesia Complications History of PONV No Hx of PONV and No Hx of Motion Sickness Social History Smoking Status: Never smoker Do You Dip or Chew Tobacco: No Hx Alcohol Use: No Hx Substance Use: No substance use type: does not use Review of Systems Reflux controlled. Rare palpitations. Patient denies chest pain, shortness of breath, cough, wheezing. Physical Exam Vital Signs VITALS BP 145/79 P 73 TEMP 98.0 SP02 98%RA RESP 16 PHYSICAL Full neck and c-spine range of motion. Full TMJ range of motion. TMD 2.5 finger breaths Mallampati Score 2 Dentition: full dentures upper/lower; edentulous Lungs: clear throughout to auscultation Cardiac: regular rate and rhythm, no murmurs noted Spine: normal Carotid arteries: negative bruit Extremities: no edema Testing Laboratory Results 11/30/18 WBC 6.1 H/H 14.9/47.2 PLT 220 Echocardiogram Date: 05/11/18 EF 70%. No significant valvular disease. Normal cardiac valves for age. Estimated normal mean right atrial pressure (RV and PA systolic pressure cannot be estimated on study). Compared to 10/07/17 ECHO, "no significant changes."
--- NOTE | 2018-12-21 14:02 | XRay Report ---
XR chest Pre-admission PA/Lat HISTORY: Preop. COMPARISON: None. FINDINGS: No pneumothorax. No pleural effusions. The lungs are clear. The heart is top normal in size . Lobular retrocardiac density favors a moderate hiatus hernia. IMPRESSION: 1. No acute process within the chest. 2. Moderate hiatus hernia. Electronically signed by: Zhou Bender M.D. 12/21/2018 2:01 PM
[2018-12-21 15:18] LABS: INR 1.2 (0.9-1.1); Partial Thromboplastin Time 26.4 Seconds (21.0-31.0); Prothrombin Time 11.7 Seconds (9.0-12.0)
[2018-12-21 15:21] LABS: BUN Creatinine Ratio 21.7 (10-20); Calcium 8.5 mg/dl (8.5-10.1); Creatinine Clr Calc Pharmacy 53.7 ml/min; Est GFR (Non-African American) 63.8; Potassium 4.4 mmol/L (3.5-5.1)
--- NOTE | 2019-01-21 19:41 | History & Physical Report ---
Date of Service January 21, 2019 Assessment & Plan (1) Osteoarthritis of left knee: We will proceed with a left total knee arthroplasty. Postoperatively she will be started back on Xarelto for DVT prophylaxis. She will be kept overnight for postoperative medical management. [facility] plans [facility] upon discharge. Present on Admission?: Yes History of Present Illness Chief Complaint: Primary osteoarthritis of the left knee Primary Care Provider: Cristela Scales MD Lisa is a pleasant 78-year-old female who I did a right total knee arthroplasty on in 2017. She is done very well with that. Unfortunately, she is dealing with a lot of left knee pain. X-rays and clinical examination are diagnostic for primary osteoarthritis of the left knee. After failing conservative treatment, she has elected proceed with a left total knee arthroplasty. Allergies Allergy/AdvReac Type Severity Reaction Status Date / Time simvastatin Allergy Mild RASH Verified 12/14/18 13:34 Sulfa (Sulfonamide Allergy Mild RASH Verified 12/14/18 13:34 Antibiotics) doxycycline Allergy Unknown SOB, Verified 12/21/18 13:13 trouble swallowing Home Medications Home Medications Medication Instructions Recorded Confirmed Type albuterol sulfate HFA 90 2 puffs INHALATION Q4H PRN #18 gm 11/09/18 12/14/18 Rx mcg/actuation aerosol inhaler cyanocobalamin (vit B-12) ER 1,000 1,000 mcg PO DAILY #90 tab 11/09/18 12/14/18 Rx mcg tablet,extended release fluticasone 250 mcg-salmeterol 50 1 puffs INHALATION Q12H #60 ea 11/09/18 12/14/18 Rx mcg/dose blistr powdr for inhalation multivitamin tablet 1 tab PO DAILY #90 tab 11/09/18 12/14/18 Rx citalopram 20 mg tablet 20 mg PO QAM tab 11/18/18 12/14/18 History melatonin 3 mg tablet 3 mg PO HS PRN tab 11/18/18 12/14/18 History rivaroxaban 20 mg tablet 20 mg PO HS tab 11/30/18 12/14/18 History calcium carbonate-vitamin D3 1 tab PO DAILY 12/14/18 12/14/18 History cetirizine 10 mg PO QAM 12/14/18 12/14/18 History famotidine 20 mg PO BID PRN 12/14/18 12/14/18 History levothyroxine 88 mcg PO QAM 12/14/18 12/14/18 History polysaccharide iron complex 150 mg PO BID 12/14/18 12/14/18 History [Ferrex 150] rosuvastatin 10 mg PO HS 12/14/18 12/14/18 History enoxaparin 150 mg/mL subcutaneous 135 mg SQ DAILY #3 syr 12/28/18 Rx syringe Past Med/Surg History Medical History H/O deep venous thrombosis LLE DVT: 3 years ago= on Xarelto Recurrent pulmonary embolism 3 years ago + recurrent ("unprovoked")- on Xarelto Obesity Iron deficiency anemia hx of iron infusions Hypothyroidism Hyperlipidemia Asthma stable Acid reflux disease controlled Anxiety and depression History of gout Morbid obesity Osteoarthritis Surgical History History of appendectomy History of cataract surgery RT History of colonoscopy History of dilation and curettage History of esophagogastroduodenoscopy (EGD) History of tonsillectomy and adenoidectomy History of tooth extraction History of total knee replacement Right TKA: 07/19/16: SAB x 1 at L3-L4 + PNB at [facility] History of tubal ligation Family History Unknown No problems noted. Father Colorectal cancer Diabetes Family hx of colon cancer Brother Prostate cancer Sister Lung cancer Family/Other Myocardial infarction Son Diabetes Social History Preferred Language: Wallisian Communication Ability: Effective Visual Impairment: Limited Hearing Ability: Normal Manager Fund Required: No Beliefs That Will Affect Care: None marital status: / Current Living Situation: Family Current Living Situation Comment: son current occupational status: retired Other Information That Helps Us Care for You: No Feels Safe at Home: Yes Safety Concerns: Feels Safe At This Time Smoking Status: Never smoker Do You Dip or Chew Tobacco: No ; Second Hand Exposure: Yes ; Tobacco Cessation Education Requested by Patient: No Hx Alcohol Use: No Hx Substance Use: No Childhood Exposure to Second-Hand Smoke: Yes caffeine: Yes (coffee, occasionally tea, rare soda) during the past year weight has: remained stable Dental Care, Regularly: No Physical Activity Frequency: 1-2 Times per Week Seatbelt Use: always Sunscreen Use: No Do you think of yourself as: straight/heterosexual Review of Systems All systems reviewed & are unremarkable except as noted in HPI & below Physical Exam Constitutional: WD/WN, vitals as above Eyes: PERRL, conjunctivae normal, anicteric sclerae ENMT: external ear and nose normal, oropharynx normal Neck: trachea midline, no thyromegaly Respiratory: normal respiratory effort Cardiovascular: RRR, no murmur, no edema Gastrointestinal (Abdomen): normal bowel sounds, soft, nontender, no hepatosplenomegaly Musculoskeletal: On physical examination of the left knee there is a trace effusion. There is near full range of motion and no evidence of instability. There is significant tenderness palpation along the medial and lateral joint lines and over the distal femoral condyles. Psychiatric: A+Ox3, euthymic affect Results & Data Diagnostic Findings Radiographs of the left knee demonstrate advanced osteoarthritis with joint space narrowing osteophyte formation and [id number] articulation.
[2019-01-22] MEDS ORDERED: LR 60ML/HR IV SCH (06:00)
[2019-01-22] MEDS ORDERED: FAMOTIDINE 20 MG TAB PO SCH (06:00)
[2019-01-22] MEDS ORDERED: ROPIVACAINE 0.5% HCL/PF 150 MG, BUPIVACAINE 0.5% MPF 30 ML, EPINEPHrine 30MG/30ML (OR U... INSTIL SCH (06:00)
[2019-01-22] MEDS ORDERED: ACETAMINOPHEN 500 MG TAB PO SCH (06:00)
[2019-01-22] MEDS ORDERED: TRANEXAMIC ACID 1,000 MG **IV Pre-op IV SCH (06:00)
[2019-01-22] MEDS ORDERED: LR 500ML BOLUS, THEN 15ML/HR IV SCH (06:00)
[2019-01-22] MEDS ORDERED: GABAPENTIN 300 MG CAP PO SCH (06:00)
[2019-01-22] MEDS ORDERED: CEFAZOLIN 2000MG 2,000 MG/15 ML SYR IV SCH (06:00)
[2019-01-22] MEDS ORDERED: TRANEXAMIC ACID 1,000 MG **IV Intra-op IV SCH (06:30)
[2019-01-22] MEDS ORDERED: BUPIVACAINE 0.25% 30 ML VIAL ONE (06:36)
[2019-01-22] MEDS ORDERED: BUPIVACAINE 0.5 % 5 MG/1 ML PF 10ML VIAL ONE (06:36)
--- NOTE | 2019-01-22 06:46 | History & Physical Bridge Note ---
Date of Service January 22, 2019 History & Physical Bridge Note I have examined the patient, reviewed the History & Physical and in the interval since the performance of the History & Physical I have noted the following changes of clinical significance: no changes noted
[2019-01-22] MEDS ORDERED: fentaNYL citrate 100 MCG/2 ML VIAL ONE (08:27)
[2019-01-22] MEDS ORDERED: MIDAZOLAM HCL 1 MG/ML 2ML VIAL ONE (08:27)
[2019-01-22] MEDS ORDERED: ePHEDrine sulfate 50 MG/ML AMP IV PRN (08:47)
[2019-01-22] MEDS ORDERED: ATROPINE SULFATE 0.1 MG/ML 10ML SYR IV PRN (08:47)
[2019-01-22] MEDS ORDERED: PROPOFOL IV EMULSION 10 MG/ML 20 ML VIAL IV ONE (08:59)
[2019-01-22] MEDS ORDERED: LIDOCAINE HCL 2% 2 ML VIAL/AMP(20MG/ML) INFIL ONE (08:59)
[2019-01-22] MEDS ORDERED: ORTHO JOINT ANESTHETIC ONE (09:12)
--- NOTE | 2019-01-22 10:11 | Operative Report ---
Post Operative Report Pre & Post Diagnosis Operation Date: 01/22/19 08:30 Pre-Op Diagnosis: Degenerative Joint Disease Left Knee Post-Op Diagnosis: Degenerative Joint Disease Left Knee I identified the patient and participated in the time-out.: Yes Procedure Operation Date: 01/22/19 08:30 Actual Procedures p Left Total Knee Arthroplasty(Left) - Lopez Patel DO Surgeon Lopez Patel DO Orthopedic Shoe Maker Lopez Lozano PAC Estimated Blood Loss 5 Findings Consistent with Post-Op Diagnosis Specimens Left femoral and tibial bone Complications none Disposition Disposition: Recovery Room Indications Pleasant 78-year-old female who presented my office with chronic increasing left knee pain. X-rays and clinical examination were diagnostic for advanced osteoarthritis of the left knee. After failing conservative treatment, she elected to proceed with a left total knee arthroplasty. Description of Procedure Implants used: I used a [employer] Vanguard total knee arthroplasty system with a size 60 femur, 63 tibia, 28 patella, and a size 14 PS plus polyethylene bearing. All components were cemented in place with Palacos G cement. The patient arrived [facility] for the above procedure. There were seen in the preoperative holding area and the operative extremity was identified and signed. There were given a preoperative antibiotic, a spinal anesthetic and an adductor nerve block. There were taken back to the operating room and laid on the table in supine position. There were given basic sedation. The operative knee was then prepped and draped in sterile fashion. A timeout was done, and the patient and the operative extremity was properly identified. A midline incision was made directly over the patella. Dissection was taken down to the extensor mechanism. A subvastus arthrotomy was used. The medial retinaculum was released and the fat pad was mostly left intact. The knee was flexed and the ACL, PCL, and meniscus were removed. A drill was sent down the center of the femoral canal followed by an intramedullary deniz. Off that deniz a distal femoral cutting block was placed. 9 mm was resected off the distal femur at 5 of valgus. A posterior referencing AP sizing guide was then placed on the distal femur. The femur measured to be a size 60. 2 drill holes were placed in 3 of external rotation. A 4-in-1 cutting block was then impacted into place. Anterior posterior and chamfer cuts were then made. The posterior stabilizing box guide was then impacted into place and the box was resected for the posterior stabilizing component. The proximal tibia was then exposed. A drill was sent down the center of the tibial canal followed by an intramedullary deniz. Off that deniz a proximal tibial resection guide was placed. The proximal tibia was then resected. The tibia measured to be a size 63. The tibial plate was then placed in the appropriate rotation and the tibia was punched. The posterior aspect of the knee was then opened up and any additional meniscus fragments and osteophytes were removed. Trial components were then placed. I used a size 14 PS plus polyethylene insert. The knee was brought through a full range of motion and felt to be stable. The patella was then everted and 8 mm was resected off the posterior aspect of the patella. The patella measured to be a size 28. 3 peg holes were then drilled. A trial patella was placed. The knee was once again brought through a full range of motion and felt to be stable. Trial components were then removed. The surrounding soft tissues were injected with 100 cc of an orthopedic pain control cocktail. All components were then cemented into place with Palacos G cement. The final polyethylene insert was then snapped into place and the anterior bar was locked. Once cement was dry the tourniquet was deflated. Hemostasis was obtained. A dilute betadyne lavage was then done for 3 minutes. The joint was then irrigated with normal saline solution. The subvastus arthrotomy was then closed with #1 Vicryl suture. The skin was closed with 2-0 Vicryl, 3-0V lock suture, and zainab. A soft compressive dressing was placed. The patient was then transferred to a hospital bed and taken to the postanesthesia care unit in stable condition. They tolerated the procedure well. I attest to the content of the Intraoperative Record and any orders documented therein. Any exceptions are noted below.
--- NOTE | 2019-01-22 10:52 | XRay Report ---
XR knee LT 1 or 2V routine HISTORY: 78 years-old Female Surgical Post Op left knee total joint arthroplasty. COMPARISON: None available TECHNIQUE: 2 views of the left knee FINDINGS: Left knee total joint arthroplasty and patella resurfacing. Satisfactory alignment without acute frac ture or dislocation. Anterior midline skin zainab with expected postsurgical soft tissue swelling an d deep tissue air. Surgical drainage catheter. IMPRESSION: Satisfactory alignment of the left knee total joint arthroplasty. The above report was generated using voice recognition software. It may contain grammatical, syntax o r spelling errors. Electronically signed by: Frank Stack M.D. 01/22/2019 10:51 AM
--- NOTE | 2019-01-22 11:09 | Anesthesiology Progress Note ---
Date of Service January 22, 2019 Anesthesia Post Procedure Vital Signs Vital Signs: Temp Pulse Pulse Resp BP BP Pulse Ox 01/22/19 11:04 36.6 C 61 18 119/52 L 99 01/22/19 10:55 36.5 C 61 18 119/52 L 99 01/22/19 10:45 57 L 18 115/61 99 01/22/19 10:35 62 18 115/68 98 01/22/19 10:28 36.4 C L 67 18 109/53 L 99 01/22/19 06:06 36.8 C 80 20 185/113 H 97 Transfer of Care Handoff Completed per policy Notes Mental Status: alert / awake / arousable and participated in evaluation Nausea / Vomiting: adequately controlled Pain: adequately controlled Airway Patency, RR, SpO2: stable & adequate BP & HR: stable & adequate Hydration State: stable & adequate Neuraxial Anesthesia: was administered and sensory block is resolving Anesthetic Complications: no major complications apparent and Pt Satisfied with anesthetic care
[2019-01-22] MEDS ORDERED: ONDANSETRON INJ 2 MG/ML 2 ML VIAL IV PRN (11:26)
[2019-01-22] MEDS ORDERED: ALBUTEROL HFA 8 GM INHALER INH PRN (11:26)
[2019-01-22] MEDS ORDERED: NALOXONE HCL 0.4 MG/1 ML VIAL/CARP IV PRN (11:26)
[2019-01-22] MEDS ORDERED: SODIUM CHLORIDE 0.9% 1000ML 1,000 ML IV SCH (11:26)
[2019-01-22] MEDS ORDERED: MAGNESIUM HYDROXIDE SUSP 30 ML UDC PO PRN (11:26)
[2019-01-22] MEDS ORDERED: METOCLOPRAMIDE HCL INJ 5 MG/ML 2 ML VIAL IV PRN (11:26)
[2019-01-22] MEDS ORDERED: FAMOTIDINE 20 MG TAB PO PRN (11:26)
[2019-01-22] MEDS ORDERED: HYDROmorphone INJ 0.5 MG/0.5 ML SYR IV PRN (11:26)
[2019-01-22] MEDS ORDERED: BISACODYL 10 MG SUPP PR PRN (11:26)
[2019-01-22] MEDS: KETOROLAC TROMETHAMINE 15 MG/ML VIAL IV SCH ×3 (13:21→23:39)
[2019-01-22] MEDS: ACETAMINOPHEN 500 MG TAB PO SCH ×2 (14:03→21:10)
[2019-01-22] MEDS: FLUTICASONE/SALMETEROL 250/50 (ADVAIR) 14 PUFF/1 INHALER INH SCH ×2 (14:03→21:11)
[2019-01-22] MEDS: OXYCODONE HCL IR 5 MG TAB (IMMEDIATE RELEASE) PO PRN (15:59)
[2019-01-22] MEDS: CEFAZOLIN 2000MG 2,000 MG/15 ML SYR IV SCH (17:39)
[2019-01-22] MEDS ORDERED: ROSUVASTATIN CALCIUM 10 MG TAB PO SCH (21:00)
[2019-01-22] MEDS ORDERED: SENNA 8.6 MG TAB PO SCH (21:00)
[2019-01-22] MEDS: DOCUSATE SODIUM 100 MG CAP PO SCH (21:10)
[2019-01-23] MEDS: CEFAZOLIN 2000MG 2,000 MG/15 ML SYR IV SCH (00:59)
[2019-01-23 05:32] LABS: Hematocrit (blood only) 31.2 % (37-47); Hemoglobin 9.9 g/dL (12.0-16.0); Mean Corpuscular Hemoglobin 29.8 pg (25-34); Mean Corpuscular Hgb Conc 31.7 g/dL (32-36); Mean Platelet Volume 10.3 fL (7.4-10.4); Platelet Count 244 K/uL (130-400); RDW Coefficient of Variation 12.6 % (11.5-14.5); RDW Standard Deviation 43.8 fL (36.4-46.3); Red Blood Count 3.32 M/uL (4.2-5.4); White Blood Count 8.67 K/uL (4.8-10.8)
[2019-01-23 05:56] LABS: BUN Creatinine Ratio 18.4 (10-20); Calcium 8.4 mg/dl (8.5-10.1); Creatinine Clr Calc Pharmacy 57.3 ml/min; Est GFR (African American) 80.6; Est GFR (Non-African American) 69.6; Potassium 4.3 mmol/L (3.5-5.1)
[2019-01-23] MEDS: KETOROLAC TROMETHAMINE 15 MG/ML VIAL IV SCH ×2 (06:03→11:06)
[2019-01-23] MEDS: ACETAMINOPHEN 500 MG TAB PO SCH (06:04)
[2019-01-23] MEDS ORDERED: LEVOTHYROXINE SODIUM 88 MCG TABLET PO SCH (06:30)
[2019-01-23 07:51] VITALS: PULSE 77; TEMP 97.9; O2SAT 97
[2019-01-23] MEDS ORDERED: CITALOPRAM 20 MG TAB PO SCH (09:00)
[2019-01-23] MEDS ORDERED: MULTIVITAMIN TAB PO SCH (09:00)
[2019-01-23] MEDS ORDERED: CETIRIZINE HCL 10 MG TABLET PO SCH (09:00)
[2019-01-23] MEDS ORDERED: ENOXAPARIN 150 MG/ML SYR SQ SCH (09:00)
[2019-01-23] MEDS: DOCUSATE SODIUM 100 MG CAP PO SCH (09:08)
[2019-01-23] MEDS: FLUTICASONE/SALMETEROL 250/50 (ADVAIR) 14 PUFF/1 INHALER INH SCH (09:08)
--- NOTE | 2019-01-23 09:08 | Orthopedic Progress Note ---
Date of Service January 23, 2019 Assessment & Plan (1) Osteoarthritis of left knee: Overall she is doing very well. She will be seen by physical therapy today for ambulation and range of motion exercises. If she does well she can be [facility] to [facility] today. She is on Xarelto for DVT prophylaxis. We will place her on tramadol for pain control. She can follow-up with orthopedics in 2 weeks. Present on Admission?: Yes James Gonzalez was seen and examined at bedside today. Overall she is doing very well. She is not having much pain in the knee. She has been up and ambulating to the bathroom. She has no other complaints. Physical Exam Musculoskeletal: On physical examination of the left knee, the dressing is clean and dry. Her legs out in full extension. She is active dorsiflexion and plantarflexion of the left ankle. Results & Data Vital Signs (Past 12 Hours) Vital Signs Temp Pulse Resp BP BP Pulse Ox 01/23/19 07:42 36.6 C 77 16 98/63 L 97 01/23/19 03:20 36.4 C L 74 16 116/73 94 01/22/19 23:25 36.4 C L 67 16 133/75 91 Laboratory Results H & H 01/23/19 Range/Units 04:35 Hgb 9.9 L (12.0-16.0) g/dL Hct 31.2 L (37-47) % Coagulation 12/21/18 Range/Units 13:29 INR 1.2 H (0.9-1.1) Diagnostic Findings Postoperative x-rays of the left knee show the prosthesis to be in anatomic alignment without any evidence of fracture, dislocation, or loosening. PG Care Time/CCT Total # of Minutes Spent Total Time Spent with Patient: Total time spent is greater than 50% in coordination of care (as documented) at patient's floor/unit and/or counseling patient:
[2019-01-23] MEDS: OXYCODONE HCL IR 5 MG TAB (IMMEDIATE RELEASE) PO PRN (09:11)
[2019-01-23 10:50] VITALS: BP 116/73
[2019-01-23] MEDS ORDERED: RIVAROXABAN 20 MG TAB PO SCH (21:00)
--- NOTE | 2019-01-26 16:19 | Discharge Summary ---
Date of Service January 26, 2019 Admission HPI Per Admitting Provider Lisa is a pleasant 78-year-old female who I did a right total knee arthroplasty on in 2017. She is done very well with that. Unfortunately, she is dealing with a lot of left knee pain. X-rays and clinical examination are diagnostic for primary osteoarthritis of the left knee. After failing conservative treatment, she has elected proceed with a left total knee arthroplasty. Principal Diagnosis Left total knee arthroplasty Discharge Data Allergies Allergy/AdvReac Type Severity Reaction Status Date / Time simvastatin Allergy Mild RASH Verified 01/22/19 06:13 Sulfa (Sulfonamide Allergy Mild RASH Verified 01/22/19 06:13 Antibiotics) doxycycline Allergy Unknown SOB, Verified 01/22/19 06:13 trouble swallowing Consultations 01/22/19 11:26 Consult Case Management - Discharge Planning Routine Procedures Performed Operation Date: 01/22/19 08:30 Actual Procedures p Left Total Knee Arthroplasty(Left) - Lopez Patel DO Ordered Studies 01/22/19 05:00 US - OR guided needle placemen Routine Hospital Course (1) Osteoarthritis of left knee: On January 23, 2019 Lisa arrived at [facility] and underwent a left total knee arthroplasty without complication. She had a spinal anesthetic and a left adductor nerve block. Postoperatively she was started on anticoagulation and discharged to general orthopedic floors. Her hospital course was uneventful. On postop day #1 her H&H was stable and her pain was well controlled. She was able to ambulate well with physical therapy. She was then discharged home. She will follow-up with orthopedics in 2 weeks. Total Time Total Time Spent Total Time Spent (In Minutes): 20 Discharge Plan Discharge Items Patient Disposition: Transfer Inpatient Rehab Fac Reason For Visit: Degenerative Joint Disease Left Knee Discharge Diagnosis: Left total knee arthroplasty Activity: As commented below Non-emergency contact: Surgeon Call non-emergency contact if: your wound has increased redness and your wound has increased drainage Follow-up/Referrals: Cristela Scales MD [Primary Care Provider] - Diet: Regular Addtl Attending Provider Instructions: Activity and Therapy Recommendations: * If you are using [facility] then therapy will be provided at your home until they feel you have accomplished all of your goals. * If you are using [facility] then Physical Therapy will be provided until they feel you are ready to start Outpatient Physical Therapy. * If you are not using home therapy then Outpatient Physical Therapy should start about 3-5 days from your day of surgery. Therapy will last about 6-10 weeks * It is important not to put a pillow under your knee when you are relaxing or sleeping. It is just as important to make sure you are getting your knee perfectly straight as it is to regain your knee bend. * You were shown a series of exercises in the hospital. Do these exercises three times each day including the exercises you were shown in physical therapy. * Get up and walk several times each day. For the first four weeks, try not to stand or walk for more than one hour at a time. If you do stand or walk for more than one hour, you will not hurt anything, but your leg will likely swell. * As you feel comfortable, you may change from the walker or crutches to a cane and then to independent walking. Medications: * Narcotic You will likely be sent home from the hospital with a prescription for the narcotic pain medication that worked best throughout your stay. * Aspirin Most patients will be required to take Aspirin 81mg twice a day for 6 weeks after surgery. This is obtained [id number] and a prescription is not necessary. * Other medications may be prescribed for specific circumstances. If you have any questions, please call the office at . * Resume previous home medications unless otherwise instructed TEDs/Elastic Stockings: The white elastic stockings help limit swelling and prevent blood clots from forming in your legs.~ The more you wear them, the more they work. Wear them for six weeks. Dressing Care: If the incision is not draining then you may leave the zainab open to air. If there is a little bit of drainage or if the zainab are getting stuck on your clothing then cover the incision with a dry dressing. The zainab will be removed at your 2 week follow-up appointment. Showering: You may shower 5 days from the day of surgery. Let the soapy shower water run over the zainab and pat them dry. Do not scrub or soak the incision. Things To Watch For: * Drainage from the incision site that occurs more than one week after your surgery. * Increased redness at the incision site. * Fever above 102 degrees Fahrenheit. * Unusual chest pain or shortness of breath. * Call [facility] at with any of the above problems Follow-Up Visit: Follow-up with Dr. Patel 2-3 weeks after your day of surgery. An appointment was probably scheduled when you signed-up for surgery in the office. If you have any questions call Office Instructions: More detailed instructions as well as Frequently Asked Questions were provided in a folder by our office when you signed-up for surgery. Please review these instructions when you get home. If you have any further questions or concerns, please feel free to call the office at [phone] Pending Studies at Discharge: No Stand-Alone Forms: My [facility] Skilled Items Patient informed of condition?: Yes DNR: No Discharge Level of Care: Acute rehab Communicable Disease: No Discharge Prognosis: Improving Lines: None Urinary Catheter: No Medications and DC Order Prescriptions: New tramadol 50 mg tablet 50 mg PO Q6H PRN (Reason: pain) Qty: 30 RF: 0 Continued albuterol sulfate 90 mcg/actuation HFA aerosol inhaler 2 puffs inhalation Q4H PRN (Reason: shortness of breath or wheezing) Qty: 18 RF: 3 cyanocobalamin (vitamin B-12) 1,000 mcg tablet extended release 1,000 mcg PO DAILY Qty: 90 RF: 3 fluticasone propion-salmeterol 250-50 mcg/dose blister with device 1 puffs inhalation Q12H Qty: 60 RF: 11 multivitamin tablet 1 tab PO DAILY Qty: 90 RF: 3 citalopram 20 mg tablet 20 mg PO QAM RF: 0 melatonin 3 mg tablet 3 mg PO HS PRN (Reason: Sleep) RF: 0 rivaroxaban 20 mg tablet 20 mg PO HS RF: 0 cetirizine 10 mg Tablet 10 mg PO QAM RF: 0 polysaccharide iron complex [Ferrex 150] 150 mg iron Capsule 150 mg PO BID RF: 0 calcium carbonate-vitamin D3 600 mg(1,500mg) -200 unit tablet 1 tab PO DAILY RF: 0 levothyroxine 88 mcg tablet 88 mcg PO QAM RF: 0 famotidine 20 mg tablet 20 mg PO BID PRN (Reason: INDIGESTION) RF: 0 rosuvastatin 10 mg tablet 10 mg PO HS RF: 0 Discontinued enoxaparin [Lovenox] 150 mg/mL syringe 135 mg SQ DAILY Qty: 3 RF: 0 Discharge Orders: Discharge Order (Routine); Ordered 01/23/19 Ordered By: Lopez Reyes/Other Patient Handouts: Rivaroxaban Oral tablet Rivaroxaban Oral tablet Admission Data Admit Date/Time: 01/22/19 10:30 Attending Provider: Lopez Ptael Admit Provider: Lopez Patel Primary Care Provider: Cristela Scales Other Providers: [facility] Other Interventions: Discharge Summary Assessment (RN) Last Done: 01/23/19 10:48 DC Date/Time DO NOT enter until pt leaves facility: 01/23/19 11:33
== END 2019-01-23 11:33 | DRG 470 ==
LOC: ASU 05:34 → 3E 10:30